=== PATIENT | female | born 1975 | race Caucasian/White ===

== ENCOUNTER 2024-11-29 21:20 | Emergency (ER) | payer BC ==
[2024-11-29] MEDS ORDERED: Boostrix 0.5 ML (Tdap) VIAL (>/=7 yrs of age) ONE (21:58)
[2024-11-29] MEDS ORDERED: Lidocaine 1% (PF) 30 ML VIAL ONE (21:58)
== END 2024-11-29 22:40 | disposition home or self-care (01) ==
LOC: NAV ERS 21:20
DX: S61.012A Laceration without foreign body of left thumb without damage to nail, initial encounter (principal); E11.9 Type 2 diabetes mellitus without complications; I10 Essential (primary) hypertension; E78.5 Hyperlipidemia, unspecified; E03.9 Hypothyroidism, unspecified; Z23 Encounter for immunization; Z79.84 Long term (current) use of oral hypoglycemic drugs; Z79.890 Hormone replacement therapy; Z79.899 Other long term (current) drug therapy; W26.0XXA Contact with knife, initial encounter; Y93.89 Activity, other specified
CPT/HCPCS: 12002; 90471; 90715